=== PATIENT | female | born 1995 | race Caucasian/White ===

== ENCOUNTER → 2016-12-11 | Outpatient (CLI) | payer OTHER ==
[2016-12-11 11:46] LABS: BASOPHILS # (AUTO) 0.03 10*3/UL; BASOPHILS % (AUTO) 0.5 % (0-1); EOSINOPHILS % (AUTO) 0.8 % (0-8); HEMATOCRIT 41.9 % (37.0-47.0); HEMOGLOBIN 14.4 g/dL (12.0-16.0); IMM GRAN % (AUTO) 0.3 % (0-5); IMM GRAN# (AUTO) 0.02 10*3/UL; LYMPHOCYTES # (AUTO) 2.09 10*3/uL; LYMPHOCYTES % (AUTO) 31.6 % (10-50); MEAN CORPUSCULAR HEMOGLOBIN 29.1 PG (27-31); MEAN CORPUSCULAR HGB CONC 34.4 g/dL (33-37); MEAN PLATELET VOLUME 10.1 FL (7.4-12.2); MONOCYTES # (AUTO) 0.49 10*3/UL (0.3-0.8); MONOCYTES % (AUTO) 7.4 % (5-15); NEUTROPHILS # (AUTO) 3.94 10*3/UL; NEUTROPHILS % (AUTO) 59.4 % (50-80); RDW COEFFICIENT OF VARIATION 13.1 % (11.5-14.5); RED BLOOD COUNT 4.94 10^6/uL (4.20-5.40); WHITE BLOOD COUNT 6.62 10^3/uL (4.8-10.8)
[2016-12-11 11:48] LABS: PLATELET MORPHOLOGY COMMENT NORMAL MORPHOLOGY (NORM); PRENATAL QUESTION YES (Y)
[2016-12-11 12:30] LABS: HIV ANTIBODY NEGATIVE (N); HIV-1 P24 ANTIGEN NEGATIVE (N)
[2016-12-13 07:09] LABS: HEP B SURFACE AG Negative (Negative); RUBELLA IGG INDEX 1.5 (()); SYPHILIS IGG WITH REFLEX Negative (Negative)
== END ==
LOC: MOB LAB 10:07
PROVIDERS: ATTEND Obstetrics & Gynecology
DX: Z36 Encounter for antenatal screening of mother (principal)
CPT/HCPCS: 36415; 80081; 86900; 86901; 87088; 87185; 87205

== ENCOUNTER → 2017-02-25 | Outpatient (CLI) | payer OTHER | LOC: LAB 13:39 | PROVIDERS: ATTEND Physician Assistant Medical | DX: O23.12 Infections of bladder in pregnancy, second trimester (principal); Z3A.19 19 weeks gestation of pregnancy | CPT/HCPCS: 87088 ==

== ENCOUNTER → 2017-02-26 | Outpatient (CLI) | payer OTHER ==
--- NOTE | 2017-02-26 16:55 | DI ---
US OB GTE 14 WEEKS,02/26/2017 3:41 PM: Clinical History: screening for malformations. Previous Exam: None at this facility. Findings: Multiple grayscale and color Doppler sonographic images are obtained through the pelvis demonstrating a single live intrauterine gestation in breech presentation. Amniotic fluid level is subjectively normal. There is normal spontaneous motion of the limbs. Detected Doppler heart tones measure 142 beats per m inute. The placenta is anterior and grade 1 without visible defects. Estimated gestational age was determined by a composite of biparietal diameter, head circumference, a bdominal circumference and femur length yielding an estimated gestational age by ultrasound of 20 wee ks zero days. Estimated weight is 327 g (38th percentile). The placenta lies 2.6 cm from the internal cervical os. Impression: Single live intrauterine gestation with size equal to dates.
== END ==
LOC: US 15:37
PROVIDERS: ATTEND Obstetrics & Gynecology
DX: Z36 Encounter for antenatal screening of mother (principal); Z3A.20 20 weeks gestation of pregnancy
CPT/HCPCS: 76805

== ENCOUNTER → 2017-04-22 | Outpatient (CLI) | payer OTHER ==
[2017-04-22 17:31] LABS: HEMATOCRIT 38.2 % (37.0-47.0); HEMOGLOBIN 13.1 g/dL (12.0-16.0); MEAN CORPUSCULAR HEMOGLOBIN 29.5 PG (27-31); MEAN CORPUSCULAR HGB CONC 34.3 g/dL (33-37); MEAN PLATELET VOLUME 9.9 FL (7.4-12.2); RED BLOOD COUNT 4.44 10^6/uL (4.20-5.40)
== END ==
LOC: LAB 16:12
PROVIDERS: ATTEND Obstetrics & Gynecology
DX: Z36 Encounter for antenatal screening of mother (principal); Z3A.28 28 weeks gestation of pregnancy
CPT/HCPCS: 36415; 82950; 85027

== ENCOUNTER → 2017-05-21 | Outpatient (CLI) | payer OTHER | LOC: LAB 14:27 | DX: O23.13 Infections of bladder in pregnancy, third trimester (principal); Z3A.30 30 weeks gestation of pregnancy | CPT/HCPCS: 87088 ==

== ENCOUNTER 2017-07-09 06:26 | Inpatient (IN) ==
[2017-07-09] MEDS ORDERED: CefOXitin Inj 2 GM in Sodium Chloride 0.9% 100 ML IV ONE (06:27)
[2017-07-09] MEDS ORDERED: NORMAL SALINE 10 ML SYRINGE FLUSH IVP PRN ×2 (06:27→09:05)
[2017-07-09] MEDS ORDERED: CITRIC ACID/SODIUM CITRATE 30 ML CUP PO ONE (06:27)
[2017-07-09] MEDS ORDERED: LIDOCAINE W/ SODIUM BICARB 0.5 ML SYR SUBD PRN (06:27)
[2017-07-09] MEDS ORDERED: Metoclopramide Inj 10 MG/2 ML VIAL IV ONE (06:27)
[2017-07-09] MEDS ORDERED: Lactated Ringers 1,000 ML PRIMARY IV ONE (06:27)
[2017-07-09] MEDS ORDERED: Famotidine Inj 20 MG in Normal Saline Flush 10 ML IVP ONE (06:27)
[2017-07-09] MEDS ORDERED: Lactated Ringers 1,000 ML PRIMARY IV SCH (06:30)
[2017-07-09] MEDS ORDERED: Oxytocin 20 Units + LR 20 UNIT/1,000 ML BAG IV SCH ×2 (06:30→09:06)
[2017-07-09 06:50] LABS: Hematocrit [HCT] 40.5 % (37.0-47.0); Hemoglobin [HGB] 13.8 g/dL (12.0-16.0); MEAN CORPUSCULAR HEMOGLOBIN 29.4 PG (27-31); MEAN CORPUSCULAR HGB CONC 34.1 g/dL (33-37); MEAN CORPUSCULAR VOLUME 86.4 FL (81-99); MEAN PLATELET VOLUME 10.5 FL (7.4-12.2); RED BLOOD COUNT 4.69 10^6/uL (4.20-5.40)
[2017-07-09] MEDS ORDERED: MORPHINE SULFATE/PF 10 MG/10 ML AMPULE ONE (07:37)
[2017-07-09] MEDS ORDERED: OXYTOCIN 10 UNIT/1 ML ONE (08:13)
[2017-07-09] MEDS ORDERED: ePHEDrine Inj 50 MG/ML AMP ONE (08:13)
[2017-07-09] MEDS ORDERED: ONDANSETRON 4 MG/2 ML VIAL ONE (08:35)
[2017-07-09] MEDS ORDERED: KETOROLAC 30 MG/1 ML VIAL ONE (08:39)
--- NOTE | 2017-07-09 08:55 | OB.OP.NOTE ---
Operative Report Surgeon: Kaleb Voltage Tester: Christiano Leyva MD Anesthesia Type: Regional Anesthesia Provider: Chip Delgado CRNA Surgery Date: 07/09/17 Preoperative Diagnosis: 39 Week IUP with previous , Desires Sterilization Postoperative Diagnosis: Same Procedure: Repeat LTCS with PPTL with Filshie Clips Estimated Blood Loss (mL): 350 Fluids: 2800 ml Complications: None Findings at Surgery: Viable male infant, Apgars 8/9, 6 lbs 6 oz, Normal uterus, tubes and ovaries. Indications for the Procedure: 39 week iup with previous delivery. Desires PPTL. Description of Procedure: See dictated operative report. Plan: Routine post op care.
[2017-07-09] MEDS ORDERED: Prochlorperazine Edisylate Inj 10mg/2ml vial IVP PRN (09:05)
[2017-07-09] MEDS ORDERED: DIPH,PERTUSS,TET(ADACEL) VAC/PF 0.5 ML (Tdap) IM ONE (09:06)
[2017-07-09] MEDS ORDERED: Famotidine Inj 20 MG in Normal Saline Flush 10 ML IVP PRN (09:06)
[2017-07-09] MEDS ORDERED: ONDANSETRON 4 MG/2 ML VIAL IVP PRN (09:06)
[2017-07-09] MEDS ORDERED: diphenhydrAMINE 50 MG/1 ML VIAL IV PRN (09:06)
[2017-07-09] MEDS ORDERED: CALCIUM CARBONATE 500 MG (TUMS) CHEWABLE TABLET PO PRN (09:06)
[2017-07-09] MEDS ORDERED: diphenhydrAMINE 25 MG CAPSULE PO PRN (09:06)
[2017-07-09] MEDS ORDERED: LANOLIN HPA 40 GM TUBE TOPICAL PRN (09:06)
[2017-07-09] MEDS ORDERED: Naloxone Inj 0.01 MG, Sodium Chloride 0.9% vial 1 ML IVP PRN ×2 (09:06)
--- NOTE | 2017-07-09 09:07 | CRNA.PROCE ---
Central Neuraxis Block Placemt - - Safety Measures: Time Out Taken - - Type of Block: Subarachnoid Reason for Block: Surgical Moniters Used During Block: EKG, SPO2, NIBP Skin Prep Used: ChloroPrep Skin Infiltration - Enter Amount Used in Comment Field: 1% Xylocaine (mL): Yes ( skinwheal) Spinal Needle Used: 25 Korin 80 mm Local Anesthetic - Enter Amount Used in Comment Field: 0.75 % Bupivacaine with Dextrose (ml): Yes (15mg) Additive Used - Enter Amount Used in Comment Field: Preservative Free Morphine ( mg): Yes (100mcg) Anesthesia Time - Other Weight: 98.43 kg Height: 5 ft 5 in Body Mass Index (BMI): 36.1
--- NOTE | 2017-07-09 09:09 | CRNA.PROGR ---
Anesthesia Time - - Start date: 07/09/17 End date: 07/09/17 - Procedure/Recovery Time Anesthesia : Time In: 08:01 Anesthesia : Time Out: 08:52 Anesthesia : Total Time: 51 - Total Anesthesia Time Total Anesthesia Time (minutes): 51 - Other Weight: 98.43 kg Height: 5 ft 5 in Body Mass Index (BMI): 36.1 Physical Status: P2 Anesthesia Type: Spinal Block Obstetrics: C/S anesthesia only
[2017-07-09] MEDS: Nalbuphine Inj 20 MG/ML Ampule IVP PRN ×2 (10:15→18:16)
[2017-07-09] MEDS: oxyCODONE-ACETAMINOPHEN 5-325 TAB PO PRN ×2 (10:39→20:25)
[2017-07-09] MEDS: D5-LR 1,000 ML PRIMARY IV SCH ×2 (14:00→22:14)
[2017-07-09] MEDS: KETOROLAC 15 MG/1 ML VIAL IVP PRN ×2 (14:52→21:02)
[2017-07-09] MEDS: NORMAL SALINE 10 ML SYRINGE FLUSH IVP PRN ×2 (14:52→21:02)
[2017-07-10 05:00] VITALS: O2SAT 96
[2017-07-10] MEDS: oxyCODONE-ACETAMINOPHEN 5-325 TAB PO PRN ×2 (05:09→09:00)
[2017-07-10 05:10] LABS: Hematocrit [HCT] 35.4 % (37.0-47.0); Hemoglobin [HGB] 11.9 g/dL (12.0-16.0); MEAN CORPUSCULAR HEMOGLOBIN 29.7 PG (27-31); MEAN CORPUSCULAR HGB CONC 33.6 g/dL (33-37); MEAN CORPUSCULAR VOLUME 88.3 FL (81-99); MEAN PLATELET VOLUME 10.7 FL (7.4-12.2); RED BLOOD COUNT 4.01 10^6/uL (4.20-5.40)
[2017-07-10] MEDS ORDERED: IBUPROFEN 800 MG TABLET PO PRN (08:48)
[2017-07-10] MEDS ORDERED: Senna/Docusate Tab 1 TAB TAB PO SCH (09:00)
[2017-07-10] MEDS ORDERED: Prenatal Multivitamin Tab 1 TAB TAB PO SCH (09:00)
[2017-07-10] MEDS: KETOROLAC 15 MG/1 ML VIAL IVP PRN (09:01)
--- NOTE | 2017-07-10 10:41 | OB.PROGRES ---
Subjective Post Op Day: 1 Pain Management: PO Winston Catheter: No Flatus: Yes Diet: Regular Marble Feeding Method: Formula Feeding Ambulating: Yes Concerns / Additional Information: The patient is doing very well. She is tolerating regular diet, ambulating, and voiding well. She would like to go home today. Assesstment / Plan Assessment / Plan: POD 1, doing well. Discharge to home per patient request.
--- NOTE | 2017-07-10 10:44 | DCSUMMARY ---
Hospitalization Summary Admit Date: 07/09/17 Discharge Date: 07/10/17 Primary Diagnosis:: Term , Previous Secondary Diagnosis:: Desires sterilization. Primary Surgery and Date: Repeat LTCS with Regine SHANKS Clips 07/09/17 Delivery Type: Hospital Course: Normal, uncomplicated section, recovery, and post op course. Patient discharged to home on POD 1 in good condition. f/u 1 week. / Postop Complications: None Edison Complications: None Exam - Vitals Vital Signs: Vital Signs Temperature 97.9 F Temperature Source Temporal Artery Scan Pulse Rate [Pulse Oximeter] 76 Pulse Rate 91 Respiratory Rate 16 Blood Pressure [Left Arm] 119/55 Blood Pressure 141/70 Pulse Ox 96 Oxygen Delivery Method Room Air Height 5 ft 5 in Weight 217 lb
[2017-07-10 11:05] VITALS: BP 109/68; RESP 18; TEMP 98.5
== END 2017-07-10 14:51 | disposition home or self-care (01) | DRG 766 ==
LOC: OBOR 06:26 → OBIP 10:05
PROVIDERS: ADMIT Obstetrics & Gynecology; ATTEND Obstetrics & Gynecology